=== PATIENT | male | born 1985 | race Caucasian/White ===

== ENCOUNTER 2018-07-01 22:07 | Emergency (ER) | payer OTHER ==
[~2018-07-01] VITALS: Ht 177.8 cm; Wt 106.6 kg
[2018-07-01 22:07] VITALS: BP_SYST 161
[2018-07-01] MEDS ORDERED: LISINOPRIL 10 MG TABLET (PRINIVIL) PO ONE (22:30)
[2018-07-01] MEDS ORDERED: ATENOLOL 25 MG TABLET(TENORMIN) PO ONE (22:30)
[2018-07-01 22:50] VITALS: BP_SYST 148
== END 2018-07-01 22:50 ==
LOC: SED 22:07
DX: I10 Essential (primary) hypertension (principal); Z90.89 Acquired absence of other organs
CPT/HCPCS: 99283